=== PATIENT | female | born 1945 | race Caucasian/White ===

== ENCOUNTER 2016-06-24 18:37 | Inpatient (IN) | payer MEDICARE ==
[2016-06-24] MEDS ORDERED: MORPHINE SULFATE 4 MG/ML SYRINGE IV STA ×2 (18:47→19:31)
--- NOTE | 2016-06-24 19:09 | ED ---
General Adult HPI - General Source: patient, RN notes reviewed Mode of arrival: ambulatory Limitations: no limitations <Misty Vallejo - Last Filed: 06/24/16 19:39> <aFhad De La Cruz - Last Filed: 06/24/16 20:39> - General Chief complaint: Extremity Injury, Lower Stated complaint: Fall/Leg Pain Time Seen by Provider: 06/24/16 18:39 - History of Present Illness Initial comments: 70-year-old female presents to emergency Department chief complaint of fall. Patient was walking on on even sidewalk. Patient tripped and fell onto her right hip. Patient states on the right hip. Worse with movement. Patient denies any pain to the knee to the ankle. Patient states she did not hit her head she did not pass out there is no lightheadedness or dizziness before the fall. Patient denies any neck pain. Patient states that she continue to have the pain and she had a hard time getting up so the ambulance was called and she was brought here. Patient denies any recent fever, chills, shortness of breath, chest pain, back pain, abdominal pain, nausea vomiting, numbness or tingling, dysuria or hematuria, constipation or diarrhea, headaches or visual changes, or any other current symptoms. (Misty Vallejo) - Related Data Home Medications Medication Instructions Recorded Confirmed Cholesterol Unknown 1 tab PO DAILY 06/24/16 06/24/16 Lisinopril Unknown Dose 1 tab PO DAILY 06/24/16 06/24/16 Metformin Unknown Dose 1 tab PO DAILY 06/24/16 06/24/16 Allergies Allergy/AdvReac Type Severity Reaction Status Date / Time Penicillins Allergy Rash/Hives Verified 06/24/16 18:53 Review of Systems ROS Other: All systems not noted in ROS Statement are negative. <Misty Vallejo - Last Filed: 06/24/16 19:39> ROS Other: All systems not noted in ROS Statement are negative. <Fahad De La Cruz - Last Filed: 06/24/16 20:39> ROS Statement: Those systems with pertinent positive or pertinent negative responses have been documented in the HPI. Past Medical History Past Medical History: Diabetes Mellitus, Hyperlipidemia, Hypertension Additional Past Medical History / Comment(s): Type 2 diabetes oral meds only. History of Any Multi-Drug Resistant Organisms: None Reported Past Surgical History: Joint Replacement, Tonsillectomy Additional Past Surgical History / Comment(s): Left total hip replacement Past Psychological History: No Psychological Hx Reported Smoking Status: Never smoker Past Alcohol Use History: Occasional Past Drug Use History: None Reported <Misty Vallejo - Last Filed: 06/24/16 19:39> General Exam Limitations: no limitations <Misty Vallejo - Last Filed: 06/24/16 19:39> General appearance: alert, in no apparent distress Head exam: Present: atraumatic, normocephalic, normal inspection Eye exam: Present: normal appearance, PERRL, EOMI. Absent: scleral icterus, conjunctival injection, periorbital swelling ENT exam: Present: normal exam, mucous membranes moist Neck exam: Present: normal inspection. Absent: tenderness, meningismus, lymphadenopathy Respiratory exam: Present: normal lung sounds bilaterally. Absent: respiratory distress, wheezes, rales, rhonchi, stridor Cardiovascular Exam: Present: regular rate, normal rhythm, normal heart sounds. Absent: systolic murmur, diastolic murmur, rubs, gallop, clicks GI/Abdominal exam: Present: soft, normal bowel sounds. Absent: distended, tenderness, guarding, rebound, rigid Extremities exam: Present: normal inspection, full ROM, normal capillary refill , other (Right hip deformity). Absent: tenderness, pedal edema, joint swelling , calf tenderness Back exam: Present: normal inspection Neurological exam: Present: alert, oriented X3, CN II-XII intact Psychiatric exam: Present: normal affect, normal mood Skin exam: Present: warm, dry, intact, normal color. Absent: rash <Fahad De La Cruz - Last Filed: 06/24/16 20:39> - General Exam Comments Initial Comments: General: The patient is awake and alert, in no distress, and does not appear acutely ill. Neck: The neck is supple, there is no tenderness. Cardiovascular: There is a regular rate and rhythm. No murmur, rub or gallop is appreciated. Respiratory: Lungs are clear to auscultation, respirations are non-labored, breath sounds are equal. No wheezes, stridor, rales, or rhonchi. Musculoskeletal: sensation intact. 2 pulse pulses throughout right lower extremity. full range of motion of right ankle and knee. patient to palpation in groin of right hip no pain elsewhere. no deformity. negative pelvic rock Neurological: CN II-XII intact, There are no obvious motor or sensory deficits. Coordination appears grossly intact. Speech is normal. Skin: Skin is warm and dry and no rashes or lesions are noted. Psychiatric: Normal mood and affect. (Misty Vallejo) Course <Misty Vallejo - Last Filed: 06/24/16 19:39> <Fahad De La Cruz - Last Filed: 06/24/16 20:39> Vital Signs 06/24/16 18:49 Temperature 98.0 F Pulse Rate 82 Respiratory 18 Rate Blood Pressure 164/112 O2 Sat by Pulse 98 Oximetry - Reevaluation(s) Reevaluation #1: 06/24/16 20:39 Patient's pain is under control at this time (Fahad De La Cruz) Medical Decision Making - Radiology Data Radiology results: report reviewed, image reviewed <Misty Vallejo - Last Filed: 06/24/16 19:39> - Lab Data Result diagrams: 06/24/16 20:10 <Fahad De La Cruz - Last Filed: 06/24/16 20:39> - Medical Decision Making 70 yo female presents emergency Department with a chief complaint of right hip pain after fall. This patient's x-rays she had additional right hip fracture. At this time we did the initial pain control. [facility] regarding the [facility] and discussed admission. They are agreeable with the plan. We will consult on-call medicine for medical clearance. All questions have been answered. Patient will be admitted at this time. Patient to be placed nothing by mouth after midnight. Patient will have medicine consult for clearance. (Misty Vallejo) This 20 year sessile slip and fall, right hip fracture. Patient will be admitted for orthopedic evaluation and treatment (Fahad De La Cruz) - Lab Data Lab Results 06/24/16 Range/Units 20:10 WBC 16.9 H (3.8-10.6) k/uL RBC 4.21 (3.80-5.40) m/uL Hgb 12.8 (11.4-16.0) gm/dL Hct 37.9 (34.0-46.0) % MCV 90.1 (80.0-100.0) fL MCH 30.5 (25.0-35.0) pg MCHC 33.9 (31.0-37.0) g/dL RDW 12.6 (11.5-15.5) % Plt Count 228 (150-450) k/uL Neutrophils % 87 % Lymphocytes % 8 % Monocytes % 4 % Eosinophils % 1 % Basophils % 0 % Neutrophils # 14.6 H (1.3-7.7) k/uL Lymphocytes # 1.3 (1.0-4.8) k/uL Monocytes # 0.6 (0-1.0) k/uL Eosinophils # 0.1 (0-0.7) k/uL Basophils # 0.0 (0-0.2) k/uL Disposition Time of Disposition: 19:32 Decision Date: 06/24/16 Decision Time: 19:32 <Misty Vallejo - Last Filed: 06/24/16 19:39> <Fahad De La Cruz - Last Filed: 06/24/16 20:39> Clinical Impression: Closed right hip fracture Disposition: ADMITTED IP TO THIS [facility] Condition: Stable Referrals: None,Stated [Primary Care Provider] - 1-2 days Addendum entered and electronically signed by Misty Vallejo PAC 06/24/16 19:43: Labs will be followed up by the admitting physician.
[2016-06-24] MEDS ORDERED: ORPHENADRINE 30 MG/ML 2 ML VIAL IVP STA (19:31)
[2016-06-24] MEDS ORDERED: LORazepam 2 MG/ML SYRINGE IV PRN (19:32)
[2016-06-24] MEDS ORDERED: ONDANSETRON 4 MG/2 ML VIAL IVP PRN (19:32)
[2016-06-24] MEDS ORDERED: NALOXONE 0.4 MG/ML 1 ML VIAL IV PRN (19:32)
[2016-06-24] MEDS ORDERED: HYDROcodone/APAP 5-325MG 1 EACH TAB PO PRN (19:32)
--- NOTE | 2016-06-24 19:36 | XR ---
EXAMINATION TYPE: XR Hip RT and AP Pelvis DATE OF EXAM: 06/24/2016 7:31 PM COMPARISON: NONE HISTORY: Pelvic and right hip pain after fall injury. TECHNIQUE: A single AP view of the pelvis is obtained. Two views of the right hip are obtained. FINDINGS: Osseous structures are demineralized which is noted 2 lower radiographic sensitivity. Linea r lucency consistent with acute nondisplaced intertrochanteric fracture right proximal femur is ident ified. There is 10 mm ossific fragment involving the lesser trochanter noted. There is advanced degen erative change with marked joint space loss and spurring and subchondral cystic change in the acetabu lum and femoral head. No hip joint dislocation is seen. There is metallic hardware from left hip arthroplasty identified. Left groin vascular calcification i s seen. Sacroiliac joints are maintained. Punctate densities over the lower sacrum could reflect calc ified fibroids. No additional acute pelvic fracture or dislocation is seen. IMPRESSION: There is acute oblique nondisplaced intertrochanteric fracture of the right proximal fem ur. (Initial encounter close type posttraumatic fracture)
--- NOTE | 2016-06-24 19:37 | XR ---
EXAMINATION TYPE: XR chest 1V DATE OF EXAM: 06/24/2016 7:32 PM COMPARISON: NONE HISTORY: Presurgical study, right hip fracture. TECHNIQUE: Single frontal view of the chest is obtained. FINDINGS: There is no focal air space opacity, pleural effusion, or pneumothorax seen. Calcified lef t suprahilar nodule or granuloma is noted. The cardiac silhouette size is mildly enlarged. The oss eous structures are demineralized. IMPRESSION: Mild cardiomegaly without acute pulmonary process.
[2016-06-24] MEDS ORDERED: LISINOPRIL 20 MG TAB PO ONE (19:41)
[2016-06-24] MEDS: SODIUM CHLORIDE 0.9% 1,000 ML IV SCH (20:09)
[2016-06-24 20:30] LABS: Basophils % (A) 0 %; CH 30.7; CHCM 34.2; Eosinophils # (A) 0.1 k/uL (0-0.7); Eosinophils % (A) 1 %; HCT 37.9 % (34.0-46.0); HGB 12.8 gm/dL (11.4-16.0); Luc # (Auto) 0.14; Luc % (Auto) 1; Lymphocytes # (A) 1.3 k/uL (1.0-4.8); Lymphocytes % (A) 8 %; MCH 30.5 pg (25.0-35.0); MCHC 33.9 g/dL (31.0-37.0); MCV 90.1 fL (80.0-100.0); Mean Platelet Volume 7.1; Monocytes # (A) 0.6 k/uL (0-1.0); Monocytes % (A) 4 %; Neutrophils # (A) 14.6 k/uL (1.3-7.7); Neutrophils % (A) 87 %; RBC 4.21 m/uL (3.80-5.40); RDW 12.6 % (11.5-15.5); WBC 16.9 k/uL (3.8-10.6); WBC (Perox) 17.33
[2016-06-24 20:39] LABS: ALT 34 U/L (9-52); AST 31 U/L (14-36); Alkaline Phosphatase 94 U/L (38-126); Anion Gap 13 mmol/L; Blood Urea Nitrogen 14 mg/dL (7-17); Calcium 8.9 mg/dL (8.4-10.2); Carbon Dioxide 25 mmol/L (22-30); Chloride 96 mmol/L (98-107); Glucose 89 mg/dL (74-99); Non-African American GFR(MDRD) >60 (>60 ml/min/1.73 sqM); Potassium 4.4 mmol/L (3.5-5.1); Sodium 134 mmol/L (137-145); Total Bilirubin 0.7 mg/dL (0.2-1.3); Total Protein 7.2 g/dL (6.3-8.2)
[2016-06-24] MEDS: MORPHINE SULFATE 4 MG/ML SYRINGE IV PRN (21:33)
[2016-06-24] MEDS ORDERED: HYDROmorphone 1 MG/ML 1 ML SYRINGE IVP PRN (23:33)
[2016-06-25 00:08] VITALS: BMI 27.6
[2016-06-25] MEDS: ACETAMINOPHEN IV (For NPO) 1,000 MG in EMPTY BAG 1 BAG IVPB SCH ×4 (00:11→18:00)
[2016-06-25] MEDS: INSULIN LISPRO (humaLOG) 300 UNIT/3 ML VIAL SQ SCH ×5 (00:36→20:13)
[2016-06-25 01:15] LABS: Appearance,Urine Clear (Clear); Bilirubin,Urine Negative (Negative); Glucose,Urine (UA) Negative (Negative); Ketones,Urine 1+ (Negative); Leukocyte Esterase,Urine Negative (Negative); Nitrite,Urine Negative (Negative); PH, Urine 6.5 (5.0-8.0); Protein,Urine Negative (Negative); Specific Gravity,Urine 1.011 (1.001-1.035); UA Billing (MACRO vs. MICRO) CHEM; Urobilinogen,Urine <2.0 mg/dL (<2.0)
[2016-06-25] MEDS ORDERED: HYDROmorphone 1 MG/ML 1 ML SYRINGE IVP PRN ×4 (02:00→16:02)
[2016-06-25] MEDS: HYDROmorphone 1 MG/ML 1 ML SYRINGE IVP PRN ×3 (04:56→12:59)
[2016-06-25 06:53] LABS: Glucose,Whole Blood 112 mg/dL (75-99)
[2016-06-25] MEDS: SODIUM CHLORIDE 0.9% 1,000 ML IV SCH (07:02)
[2016-06-25] MEDS: LISINOPRIL 10 MG TAB PO SCH (07:34)
[2016-06-25 08:00] LABS: Basophils % (A) 0 %; CH 30.7; CHCM 34.2; Eosinophils % (A) 0 %; HCT 32.9 % (34.0-46.0); Luc # (Auto) 0.17; Luc % (Auto) 2; Lymphocytes # (A) 1.2 k/uL (1.0-4.8); Lymphocytes % (A) 12 %; MCH 30.1 pg (25.0-35.0); MCHC 33.5 g/dL (31.0-37.0); Mean Platelet Volume 8.2; Monocytes # (A) 0.5 k/uL (0-1.0); Monocytes % (A) 6 %; Neutrophils # (A) 7.8 k/uL (1.3-7.7); Neutrophils % (A) 80 %; RBC 3.66 m/uL (3.80-5.40); RDW 12.6 % (11.5-15.5); WBC 9.8 k/uL (3.8-10.6); WBC (Perox) 10.39
[2016-06-25 08:14] LABS: ALT 33 U/L (9-52); AST 23 U/L (14-36); Alkaline Phosphatase 70 U/L (38-126); Anion Gap 7 mmol/L; Blood Urea Nitrogen 10 mg/dL (7-17); Calcium 8.2 mg/dL (8.4-10.2); Carbon Dioxide 26 mmol/L (22-30); Chloride 97 mmol/L (98-107); Glucose 102 mg/dL (74-99); Non-African American GFR(MDRD) >60 (>60 ml/min/1.73 sqM); Potassium 4.2 mmol/L (3.5-5.1); Sodium 130 mmol/L (137-145); Total Bilirubin 1.6 mg/dL (0.2-1.3); Total Protein 5.9 g/dL (6.3-8.2)
--- NOTE | 2016-06-25 08:20 | P.HPOR ---
History of Present Illness H&P Date: 06/25/16 Chief Complaint: Right hip fracture This is a pleasant 70-year-old female admitted with right hip fracture. The patient tripped over uneven sidewalk yesterday and fell onto the right hip. She had immediate pain was unable to ambulate. She presented to [facility] emergency department where x-rays revealed intratrochanteric fracture. The patient was subsequently admitted to our service for surgical intervention and care. The patient was seen and evaluated at bedside this morning. She complains of right hip pain that is worse with any motion. She otherwise denies any other areas of pain. She denies any head trauma or loss of consciousness. She denies any fevers, chills, nausea, vomiting, shortness of breath, chest pain or abdominal pain. Review of Systems See HPI Past Medical History Past Medical History: Diabetes Mellitus, Hyperlipidemia, Hypertension Additional Past Medical History / Comment(s): Type 2 diabetes oral meds only. History of Any Multi-Drug Resistant Organisms: None Reported Past Surgical History: Joint Replacement, Tonsillectomy Additional Past Surgical History / Comment(s): Left total hip replacement Past Anesthesia/Blood Transfusion Reactions: No Reported Reaction Past Psychological History: No Psychological Hx Reported Smoking Status: Never smoker Past Alcohol Use History: Occasional Past Drug Use History: None Reported Medications and Allergies Home Medications Medication Instructions Recorded Confirmed Type Cholesterol Unknown 1 tab PO DAILY 06/24/16 06/24/16 History Lisinopril Unknown Dose 1 tab PO DAILY 06/24/16 06/24/16 History Metformin Unknown Dose 1 tab PO DAILY 06/24/16 06/24/16 History Allergies Allergy/AdvReac Type Severity Reaction Status Date / Time Penicillins Allergy Rash/Hives Verified 06/25/16 00:13 Physical Examination The patient does not appear in acute distress. She is alert and orientated 3. She is pleasant and answers questions appropriately. Head normocephalic atraumatic. Neck is supple. Breathing appears nonlabored. Abdomen is soft, nondistended and nontender. She moves her upper extremities freely without any difficulty or pain. Upon inspection of her lower extremities, right lower extremity is mildly shortened. She is pain to palpation over the right hip and worsening pain with any motion of the right lower extremity. She otherwise denies any other areas of pain of her long bones and joints. Calves are soft and nontender. She has good foot and ankle motion bilaterally. Dorsalis pedis pulse 2+ out of 4+. Results X-rays of the right hip reveal oblique nondisplaced and trochanteric fracture of the right proximal femur. There is advanced degenerative changes of the right hip as well. - Labs Labs: Abnormal Lab Results - Last 24 Hours (Table) 06/25/16 06/25/16 06/25/16 Range/Units 00:20 06:50 07:30 RBC 3.66 L (3.80-5.40) m/uL Hgb 11.0 L (11.4-16.0) gm/dL Hct 32.9 L (34.0-46.0) % Neutrophils # 7.8 H (1.3-7.7) k/uL POC Glucose (mg/dL) 112 H (75-99) mg/dL Urine Ketones 1+ H (Negative) H & H 06/25/16 Range/Units 07:30 Hgb 11.0 L (11.4-16.0) gm/dL Hct 32.9 L (34.0-46.0) % Result Diagrams: 06/25/16 07:30 06/24/16 20:10 Assessment and Plan (1) Intertrochanteric fracture of right femur Status: Acute Plan: The clinical and x-ray findings were discussed with the patient at bedside this morning. Nonoperative versus operative treatment was discussed. Surgical intervention with IT nail of the right hip was recommended. I discussed possible risks and complications including but not limited to bleeding, infection, DVT, myocardial infarction, stroke, , malunion and nonunion. The patient understands the risks and wished to proceed with the procedure. We' ll await medical clearance and plan for possible surgery this afternoon. The patient will remain nothing by mouth. Continue with pain control. Anticipate 3 -4 day hospital stay with likely subacute rehab upon discharge.
[2016-06-25 09:13] LABS: Hemoglobin A1C 5.6 % (4.2-6.1)
[2016-06-25 11:22] LABS: Glucose,Whole Blood 103 mg/dL (75-99)
[2016-06-25] MEDS ORDERED: hydrALAZINE HCL 20 MG/ML 1 ML VIAL IVP PRN (13:16)
[2016-06-25] MEDS ORDERED: IV FLUID CONTINUATION 1,000 ML IV ONE (13:23)
[2016-06-25] MEDS ORDERED: ceFAZolin 2 GM in SODIUM CHLORIDE 0.9% 100 ML IVPB ONE (13:45)
[2016-06-25] MEDS ORDERED: KETAMINE 10 MG/ML 20 ML VIAL ONE (14:28)
[2016-06-25] MEDS ORDERED: MIDAZOLAM 2 MG/2 ML VIAL ONE (14:28)
[2016-06-25] MEDS ORDERED: MORPHINE SULFATE (PF) 0.3 MG/0.3 ML SYR ONE (14:28)
[2016-06-25] MEDS ORDERED: PROPOFOL 10 MG/ML 20 ML VIAL IV ONE (14:28)
[2016-06-25] MEDS ORDERED: fentaNYL (PF) 50 MCG/ML 2 ML AMP ONE (14:28)
[2016-06-25] MEDS ORDERED: LIDOCAINE 1% INJ 10MG/ML (20 ML MDV) ONE (14:28)
[2016-06-25] MEDS ORDERED: CLINDAMYCIN 600 MG in SODIUM CHLORIDE 0.9% 1,000 ML IRRIGATION ONE (14:53)
[2016-06-25] MEDS ORDERED: LACTATED RINGERS 1,000 ML IV ONE (15:35)
--- NOTE | 2016-06-25 15:54 | P.OP ---
Date of Procedure: 06/25/16 Preoperative Diagnosis: Four-part intertrochanteric fracture of the right hip Postoperative Diagnosis: Four-part intertrochanteric fracture of the right hip Procedure(s) Performed: Closed reduction and intramedullary hip screw fixation of the right hip Implants: [employer] intertan nail 125, 10 mm x 18 cm. [employer] Intertan integrated interlocking lag screw, 95 mm lag screw, 90 mm compression screw. [employer] L-P screw, 5.0 mm x 27.5 mm. Anesthesia: spinal Surgeon: Sigifredo Griffin Can Carrier #1: Chana Madrigal Estimated Blood Loss (ml): 100 Pathology: none sent Condition: stable Disposition: PACU Indications for Procedure: This is a 70-year-old female who sustained an injury to her right hip when she fell while walking outside. He presented to the emergency room, and x-rays demonstrated a four-part intertrochanteric fracture of the right hip. There is also noted she had significant arthritis in her right hip. After discussing the surgical and nonsurgical treatment options with her at length, I have recommended a close reduction and intramedullary hip screw fixation of her right hip. I made her aware of the possible complications including, but not limited to, infection, bleeding, hardware failure, and the need for further surgery. Informed consent was obtained. Operative Findings: The operative findings are consistent with a four-part intertrochanteric fracture of the right hip. Description of Procedure: The patient was seen in the preoperative area, consent was reviewed, and the operative site was marked with a skin marker. The patient was brought to the operating room and placed on the operating room table. Anesthesia was administered by the anesthesia department. 2 g of Ancef were administered intravenously. The patient was placed supine on the fracture table with the fractured extremity in traction boot. His other extremity was placed in a well leg babb and his bony prominences were padded. A universal timeout was then performed which confirmed the patient's name, surgical site, ALLERGIES, and consent. Fracture reduction was performed with traction and adduction maneuver which was confirmed with fluoroscopy. After reduction was performed, his extremity was then prepped and draped in the usual sterile fashion. Utilizing fluoroscopy to identify the tip of the greater trochanter, a 3 cm incision was made just proximal to the greater trochanter. Utilizing a curved awl, the starting hole was created at the tip of the greater trochanter and centralized in the AP plane. These locations were confirmed by fluoroscopy. Guidewire was then inserted down the medullary canal. Sequentially reaming of the femur was performed to 11 mm distally and 17 mm proximally. After reaming, appropriate size nail was inserted over the guidewire. The nail was inserted to the appropriate depth and the guidewire was removed. The lag screw targeting device was placed in the jig and a small skin incision was made and the targeting guide was placed down to bone. Utilizing the distally threaded guidewire, the guidewire was placed in the appropriate position in the femoral head, both anterior, posterior and mediolateral. Next, the drill for the second screw was then placed through the guide and drilled to the appropriate depth. The guidewire was measured and the appropriate depth was then reamed. The final size screw was placed to the appropriate depth. Traction was released and the fracture site was compressed with the aid of the second screw. The proximal drill guide was then removed and the distal drill guide was then inserted in the jig. Skin incision was made down to bone and the distal drill guide was then placed. Distal hole was then drilled and measured to the appropriate depth. Distal screw was then placed. The entire jig was then removed and final fluoroscopic x-rays were obtained. The wounds were then irrigated copiously with saline solution. Fascia was closed with 0-Vicryl. Subcutaneous tissues were closed with 2-0 Vicryl and the skin was closed with víctor. Sterile dressings were applied. The patient was transported to the recovery room in stable condition. The language assistant ARELIS Tucker was required due the complexity of the surgery and the need for skilled surgical garment assembly supervisor.
[2016-06-25] MEDS ORDERED: HYDROcodone/APAP 5-325MG 1 EACH TAB PO PRN ×2 (16:02)
[2016-06-25] MEDS ORDERED: ONDANSETRON 4 MG/2 ML VIAL IVP PRN ×2 (16:02→16:31)
[2016-06-25] MEDS ORDERED: NALOXONE 0.4 MG/ML 1 ML VIAL IV PRN ×2 (16:02→16:31)
[2016-06-25] MEDS ORDERED: MAGNESIUM HYDROXIDE 2,400 MG/10 ML CUP PO PRN (16:02)
--- NOTE | 2016-06-25 16:10 | XR ---
Limited right hip HISTORY: Fracture 2 Intraoperative C-arm images document the procedure.
--- NOTE | 2016-06-25 16:10 | FL ---
Fluoroscopy HISTORY: Fracture, internal fixation 1.5 minutes fluoroscopy time supplied to the referring clinician. 2 intraoperative C-arm images docu ment the procedure. See dictated report from orthopedic surgery.
[2016-06-25] MEDS ORDERED: KETOROLAC 30 MG/ML 1 ML VIAL IVP PRN (16:31)
[2016-06-25] MEDS ORDERED: diphenhydrAMINE 50 MG/ML 1 ML VIAL IVP PRN (16:31)
[2016-06-25] MEDS ORDERED: NALBUPHINE 10 MG/ML AMPUL IV PRN (16:31)
[2016-06-25] MEDS ORDERED: MORPHINE SULFATE 4 MG/ML SYRINGE IVP PRN (16:31)
[2016-06-25 16:45] LABS: Glucose,Whole Blood 104 mg/dL (75-99)
[2016-06-25] MEDS ORDERED: WARFARIN 5 MG TAB PO ONE (18:00)
[2016-06-25 20:10] LABS: Glucose,Whole Blood 236 mg/dL (75-99)
[2016-06-25] MEDS: SENNOSIDES-DOCUSATE SODIUM 1 EACH TAB PO SCH (20:13)
[2016-06-25] MEDS: MORPHINE SULFATE 4 MG/ML SYRINGE IVP PRN (21:21)
[2016-06-26] MEDS: ceFAZolin 2 GM in SODIUM CHLORIDE 0.9% 100 ML IVPB SCH ×2 (00:38→08:07)
[2016-06-26] MEDS: MORPHINE SULFATE 4 MG/ML SYRINGE IVP PRN (01:29)
[2016-06-26] MEDS: SODIUM CHLORIDE 0.9% 1,000 ML IV SCH ×2 (01:58→22:11)
[2016-06-26] MEDS: ACETAMINOPHEN TAB 325 MG TAB PO PRN ×2 (04:23→08:08)
[2016-06-26] MEDS: MORPHINE SULFATE 4 MG/ML SYRINGE IV PRN (06:34)
[2016-06-26 06:57] LABS: Glucose,Whole Blood 124 mg/dL (75-99)
[2016-06-26 07:06] LABS: Basophils % (A) 0 %; CH 30.5; CHCM 33.9; Eosinophils # (A) 0.2 k/uL (0-0.7); Eosinophils % (A) 2 %; HCT 26.6 % (34.0-46.0); HDW 2.46; Luc # (Auto) 0.11; Luc % (Auto) 1; Lymphocytes # (A) 1.1 k/uL (1.0-4.8); Lymphocytes % (A) 11 %; MCH 30.5 pg (25.0-35.0); MCHC 33.8 g/dL (31.0-37.0); MCV 90.3 fL (80.0-100.0); Mean Platelet Volume 7.7; Monocytes # (A) 0.5 k/uL (0-1.0); Monocytes % (A) 5 %; Neutrophils # (A) 7.6 k/uL (1.3-7.7); Neutrophils % (A) 81 %; RBC 2.95 m/uL (3.80-5.40); RDW 12.5 % (11.5-15.5); WBC 9.4 k/uL (3.8-10.6)
[2016-06-26 07:09] LABS: INR 1.1 (<1.1); Prothrombin Time 11.2 sec (9.0-12.0)
[2016-06-26 07:20] LABS: ALT 31 U/L (9-52); AST 28 U/L (14-36); Alkaline Phosphatase 54 U/L (38-126); Anion Gap 7 mmol/L; Blood Urea Nitrogen 6 mg/dL (7-17); Calcium 7.8 mg/dL (8.4-10.2); Carbon Dioxide 22 mmol/L (22-30); Chloride 94 mmol/L (98-107); Glucose 121 mg/dL (74-99); Non-African American GFR(MDRD) >60 (>60 ml/min/1.73 sqM); Potassium 4.1 mmol/L (3.5-5.1); Sodium 123 mmol/L (137-145); Total Bilirubin 1.8 mg/dL (0.2-1.3); Total Protein 5.3 g/dL (6.3-8.2)
[2016-06-26] MEDS: INSULIN LISPRO (humaLOG) 300 UNIT/3 ML VIAL SQ SCH ×4 (07:39→20:49)
[2016-06-26] MEDS: LISINOPRIL 10 MG TAB PO SCH (08:07)
--- NOTE | 2016-06-26 08:10 | CONS ---
DATE OF CONSULTATION: REASON FOR CONSULTATION: Advice regarding hypertension, diabetes mellitus, and multiple medical issues requested by Orthopedic Surgery. HISTORY OF PRESENT ILLNESS: This 70-year-old woman with a past medical history of diabetes, hypertension, hyperlipidemia, who is recently moved to the area was admitted to [facility] with complaints of fall and right hip pain. The patient apparently walking on the side walk, tripped and fell onto the right hip. The pain was movement on movement. The hip x-ray showed acute oblique nondisplaced fracture of the right proximal fever and the patient was evaluated and admitted for further evaluation and treatment per Orthopedic Surgery. There is no history of fever, rigors. No history of headache, loss of consciousness, seizures. WBC 19.3 on admission. Currently this improved to 9.8, hemoglobin 11, sodium is 130. PAST MEDICAL HISTORY: History of diabetes, hypertension, hyperlipidemia, history of depression, DJD. Medications prior to admission include: 1. Metformin daily. 2. Lisinopril 1 daily. 3. Cholesterol pill 1 pill p.o. daily. ALLERGIES: PENICILLIN. FAMILY HISTORY: Strokes in the family. SOCIAL HISTORY: No history of smoking, occasional alcohol. REVIEW OF SYSTEMS: ENT: No diminished hearing. No diminished vision. CARDIOVASCULAR: No angina. RESPIRATORY: No cough. GI: No nausea. : No dysuria. NERVOUS SYSTEM: No numbness, weakness. ALLERGY/IMMUNOLOGY: No asthma or hayfever. MUSCULOSKELETAL: As mentioned earlier. ENDOCRINE: As mentioned earlier. CONSTITUTIONAL: As mentioned earlier. DERMATOLOGY: Negative. RHEUMATOLOGY: Negative. PSYCHIATRY: As mentioned earlier. PHYSICAL EXAMINATION: Patient is alert and oriented x3. Pulse 74, blood pressure 140/79, respirations 16, temperature 97.6,pulse ox 94% on room air. HEENT: Conjunctivae normal. Oral mucosa moist. NECK: No jugular venous distention. No carotid bruit. No lymph node enlargement. CARDIOVASCULAR: S1 and S2, muffled. No S3, no S4. RESPIRATORY: Breath sounds diminished at the bases. No rhonchi, no crackles. ABDOMEN: Soft, nontender. No mass palpable. No splenomegaly. LEGS: Status post right hip fracture. NERVOUS SYSTEM: Higher function as mentioned. Moves all four limbs. No focal motor deficits. LYMPHATIC: No lymphadenopathy in the neck, axillae or groin. SKIN: No ulcer, rash or bleeding. LABS: At this time show WBC 9.8, hemoglobin is 11. Sodium is 130, potassium 4.2. Glucose 102, total bilirubin is 1.6. Albumin is 3.4. ASSESSMENT: 1. Status post right hip total fracture. 2. Hyponatremia. 3. Anemia, normocytic. 4. Increased bilirubin. 5. Diabetes mellitus type 2. 6. Hypertension. 7. Hyperlipidemia. 8. Degenerative joint disease. 9. FULL CODE. RECOMMENDATIONS AND DISCUSSION: In this 70-year-old woman who presented with multiple complex medical issues, will monitor the patient closely. Continue the current medications. Continue symptomatic treatment. Would recommend monitor blood sugars. DVT prophylaxis. Incentive spirometry. Resume the home medications. Will follow the patient closely. I also recommend EKG the chest x-ray is reported as no acute pulmonary process. If EKG is normal, patient will be cleared for surgery. The patient may be asked for the primary physician in the outpatient setting . Thank you for letting us participate in the care of this patient.
--- NOTE | 2016-06-26 09:59 | P.PN ---
Subjective Principal diagnosis: Right hip fracture This is a pleasant 70-year-old female who is status post right total hip arthroplasty. Today's postoperative day #1. Patient is seen and evaluated at bedside with Dr. Sigifredo Griffin. She complains of right hip pain. She's not yet been up with therapy. She has no other complaints at this time. Objective - Vital Signs Vital signs: Vital Signs Temp 98.5 F 06/26/16 08:43 Pulse 95 06/26/16 08:00 Resp 16 06/26/16 08:00 BP 141/71 06/26/16 07:47 Pulse Ox 93 L 06/26/16 07:47 Intake & Output 06/25/16 06/26/16 06/26/16 18:59 06:59 18:59 Intake Total 2101 800 700 Output Total 650 650 100 Balance 1451 150 600 Weight 70.76 kg 70.76 kg Intake: IV 926 800 ceFAZolin 2 gm In Sodium 800 Chloride 0.9% 100 ml @ 100 mls/hr IVPB ONCE ONE Rx#:[id number] Intake, IV Titration 475 Amount ACETAMINOPHEN IV (For NPO 100 ) 1,000 mg In Empty Bag 1 bag @ 400 mls/hr IVPB Q6HR [facility] Rx#:[id number] Sodium Chloride 0.9% 1, 375 000 ml @ 60 mls/hr IV . [id number] [facility] Rx#:[id number] Oral 700 700 Output: Urine 550 650 100 Uretheral ([place]) 450 650 Estimated Blood Loss 100 Other: Voiding Method Indwelling Catheter Indwelling Catheter Indwelling Catheter - Exam The patient does not appear in acute distress. Alert and orientated 3. Dressing is clean dry and intact. Calf is soft and nontender. Good foot and ankle motion without difficulty. Sensation and circulatory status is intact. - Labs CBC & Chem 7: 06/26/16 06:50 06/26/16 06:50 Labs: Abnormal Lab Results - Last 24 Hours (Table) 06/25/16 06/25/16 06/25/16 Range/Units 11:20 16:42 20:09 RBC (3.80-5.40) m/uL Hgb (11.4-16.0) gm/dL Hct (34.0-46.0) % Plt Count (150-450) k/uL Sodium (137-145) mmol/L Chloride (98-107) mmol/L BUN (7-17) mg/dL Glucose (74-99) mg/dL POC Glucose (mg/dL) 103 H 104 H 236 H (75-99) mg/dL Calcium (8.4-10.2) mg/dL Total Bilirubin (0.2-1.3) mg/dL Total Protein (6.3-8.2) g/dL Albumin (3.5-5.0) g/dL 06/26/16 06/26/16 06/26/16 Range/Units 06:50 06:50 06:55 RBC 2.95 L (3.80-5.40) m/uL Hgb 9.0 L D (11.4-16.0) gm/dL Hct 26.6 L (34.0-46.0) % Plt Count 145 L (150-450) k/uL Sodium 123 L (137-145) mmol/L Chloride 94 L (98-107) mmol/L BUN 6 L (7-17) mg/dL Glucose 121 H (74-99) mg/dL POC Glucose (mg/dL) 124 H (75-99) mg/dL Calcium 7.8 L (8.4-10.2) mg/dL Total Bilirubin 1.8 H (0.2-1.3) mg/dL Total Protein 5.3 L (6.3-8.2) g/dL Albumin 2.9 L (3.5-5.0) g/dL Assessment and Plan (1) Intertrochanteric fracture of right femur Status: Acute Plan: Continue with routine postoperative care. Toe-touch weightbearing right lower extremity. Anticoagulation with Coumadin. Pain control. Anticipate possible transfer to rehab on .
[2016-06-26 11:18] LABS: Glucose,Whole Blood 187 mg/dL (75-99)
--- NOTE | 2016-06-26 12:29 | P.PN ---
Progress Note - Text 0637 Anesthesia POD 1. Patient is status post O's production right hip with IT nail under spinal anesthesia with intra-thecal preservative free morphine 300 g. Minimal pruritus, less than adequate post-op analgesia requiring morphine supplementation, and no headache or other complications.
[2016-06-26] MEDS ORDERED: HYDROcodone/APAP 7.5-325MG 1 EACH TAB PO PRN (14:38)
[2016-06-26] MEDS: HYDROcodone/APAP 7.5-325MG 1 EACH TAB PO PRN (16:42)
[2016-06-26 16:53] LABS: Glucose,Whole Blood 181 mg/dL (75-99)
[2016-06-26] MEDS ORDERED: WARFARIN 7.5 MG TAB PO ONE (18:00)
--- NOTE | 2016-06-26 20:20 | PN ---
DATE OF SERVICE: 07/04/2016 This 70-year-old woman who was admitted after right hip fracture, underwent closed reduction and internal fixation of the right hip. No chest pain or palpitation. No fever. REVIEW OF SYSTEMS: CARDIOVASCULAR: No angina or palpitations. RESPIRATORY: As mentioned earlier. GASTROINTESTINAL: As mentioned earlier. GENITOURINARY: No dysuria. Nervous system: No numbness or weakness. On exam, alert and oriented times three. Pulse 85, blood pressure 148/66, respiratory rate 16, temperature 98.3, pulse ox 99% on 2 liters. HEENT: Conjunctivae normal. NECK: No jugular venous distention. CARDIOVASCULAR: S1, S2 muffled. RESPIRATORY: Breath sounds diminished in the bases. A few scattered rhonchi, no crackles. ABDOMEN: Soft, nontender. LEGS: Status post right hip surgery. Nervous system: Higher functions as mentioned earlier. Moves all four limbs. No focal deficits. LYMPHATICS: No lymph nodes palpable in the neck, axillae or groin. SKIN: No ulcer, rash or bleeding. LABS: WBC is 9.5, hemoglobin is 9, platelets 145. Sodium is 123, glucose 124. Total bilirubin is 1.8. Calcium is 7.8. Albumin is 2.9. The patient had multiple abnormal labs. Current medications are reviewed and include: 1. Tylenol [address] 7.5 q.6 p.r.n. 3. Catapres 0.1 q4. 4. Benadryl. 5. Apresoline 10 mg q.4. 6. Dilaudid 0.5 q.3 p.r.n. 7. Humalog. 8. Zestril. 9. Ativan. 10. Morphine. 11. Narcan. 12. Senokot-S. 13. Coumadin. ASSESSMENT: 1. Right hip fracture, status post closed reduction intramedullary hip screw fixation of the right hip. 2. Hypernatremia. 3. Anemia, normocytic. 4. Increased bilirubin. 5. Diabetes mellitus type 2. 6. Hypertension. 7. Anemia, possibly dilutional. 8. Thrombocytopenia. 9. Hyponatremia. 10. Increased random blood sugar. 11. Hypoalbuminemia with mild to moderate protein calorie malnutrition. 12. Severe right hip pain and as well as gait dysfunction. 13. Hyperlipidemia. 14. History of degenerative joint disease. 15. FULL CODE. RECOMMENDATIONS AND DISCUSSION: Recommend to continue current medications, continue with monitoring, symptomatic treatment. Otherwise, I would also recommended repeat labs and continue to monitor. I would recommend to continue the previous medications. DVT prophylaxis. Monitor the sodium. PT, OT evaluation. Possible ECF rehab. Further recommendations to follow. See orders for further details. Discussed with the patient, understands and agrees.
[2016-06-26 20:45] LABS: Glucose,Whole Blood 149 mg/dL (75-99)
[2016-06-26] MEDS: SENNOSIDES-DOCUSATE SODIUM 1 EACH TAB PO SCH (20:48)
[2016-06-26] MEDS: cloNIDine HCL 0.1 MG TAB PO PRN (20:49)
[2016-06-27] MEDS: HYDROcodone/APAP 7.5-325MG 1 EACH TAB PO PRN ×2 (02:19→14:41)
[2016-06-27 06:54] LABS: Basophils % (A) 0 %; CH 30.8; CHCM 34.8; Eosinophils # (A) 0.1 k/uL (0-0.7); Eosinophils % (A) 1 %; HCT 24.5 % (34.0-46.0); HDW 2.46; HGB 8.3 gm/dL (11.4-16.0); Luc % (Auto) 1; Lymphocytes # (A) 0.6 k/uL (1.0-4.8); Lymphocytes % (A) 8 %; MCH 30.1 pg (25.0-35.0); MCHC 33.9 g/dL (31.0-37.0); MCV 88.8 fL (80.0-100.0); Mean Platelet Volume 7.1; Monocytes # (A) 0.3 k/uL (0-1.0); Monocytes % (A) 4 %; Neutrophils # (A) 6.6 k/uL (1.3-7.7); Neutrophils % (A) 86 %; RBC 2.76 m/uL (3.80-5.40); RDW 12.7 % (11.5-15.5); WBC 7.7 k/uL (3.8-10.6); WBC (Perox) 7.89
[2016-06-27 06:59] LABS: INR 1.5 (<1.1); Prothrombin Time 14.6 sec (9.0-12.0)
[2016-06-27 07:05] LABS: Anion Gap 7 mmol/L; Blood Urea Nitrogen 4 mg/dL (7-17); Carbon Dioxide 25 mmol/L (22-30); Chloride 91 mmol/L (98-107); Glucose 132 mg/dL (74-99); Non-African American GFR(MDRD) >60 (>60 ml/min/1.73 sqM); Potassium 3.9 mmol/L (3.5-5.1); Sodium 123 mmol/L (137-145)
[2016-06-27 07:19] LABS: Glucose,Whole Blood 137 mg/dL (75-99)
[2016-06-27] MEDS: LISINOPRIL 10 MG TAB PO SCH (08:04)
[2016-06-27] MEDS: INSULIN LISPRO (humaLOG) 300 UNIT/3 ML VIAL SQ SCH ×4 (08:04→21:16)
--- NOTE | 2016-06-27 08:22 | P.PN ---
Subjective Principal diagnosis: Right hip fracture This is a pleasant 70-year-old female who is status post right total hip arthroplasty. Today's postoperative day #2. Patient is seen and evaluated at bedside with Dr. Sigifredo Griffin. She complains of right hip pain. She's up in a bedside chair. She has no other complaints at this time. Objective - Vital Signs Vital signs: Vital Signs Temp 98.7 F 06/27/16 07:44 Pulse 85 06/27/16 07:44 Resp 17 06/27/16 07:44 BP 138/72 06/27/16 07:44 Pulse Ox 95 06/27/16 07:44 Intake & Output 06/26/16 06/27/16 06/27/16 18:59 06:59 18:59 Intake Total 1520 100 Output Total 1100 Balance 420 100 Weight 70.76 kg Intake: Oral 1520 100 Output: Urine 1100 Uretheral ([place]) 400 Other: Voiding Method Indwelling Catheter Toilet # Voids 1 1 1 - Exam The patient does not appear in acute distress. Alert and orientated 3. Dressing is clean dry and intact. Calf is soft and nontender. Good foot and ankle motion without difficulty. Sensation and circulatory status is intact. - Labs CBC & Chem 7: 06/27/16 06:24 06/27/16 06:24 Labs: Abnormal Lab Results - Last 24 Hours (Table) 06/26/16 06/26/16 06/26/16 Range/Units 11:16 16:48 20:32 RBC (3.80-5.40) m/uL Hgb (11.4-16.0) gm/dL Hct (34.0-46.0) % Plt Count (150-450) k/uL Lymphocytes # (1.0-4.8) k/uL PT (9.0-12.0) sec Sodium (137-145) mmol/L Chloride (98-107) mmol/L BUN (7-17) mg/dL Glucose (74-99) mg/dL POC Glucose (mg/dL) 187 H 181 H 149 H (75-99) mg/dL Calcium (8.4-10.2) mg/dL 06/27/16 06/27/16 06/27/16 Range/Units 06:24 06:24 06:24 RBC 2.76 L (3.80-5.40) m/uL Hgb 8.3 L (11.4-16.0) gm/dL Hct 24.5 L (34.0-46.0) % Plt Count 141 L (150-450) k/uL Lymphocytes # 0.6 L (1.0-4.8) k/uL PT 14.6 H (9.0-12.0) sec Sodium 123 L (137-145) mmol/L Chloride 91 L (98-107) mmol/L BUN 4 L (7-17) mg/dL Glucose 132 H (74-99) mg/dL POC Glucose (mg/dL) (75-99) mg/dL Calcium 8.0 L (8.4-10.2) mg/dL 06/27/16 Range/Units 06:59 RBC (3.80-5.40) m/uL Hgb (11.4-16.0) gm/dL Hct (34.0-46.0) % Plt Count (150-450) k/uL Lymphocytes # (1.0-4.8) k/uL PT (9.0-12.0) sec Sodium (137-145) mmol/L Chloride (98-107) mmol/L BUN (7-17) mg/dL Glucose (74-99) mg/dL POC Glucose (mg/dL) 137 H (75-99) mg/dL Calcium (8.4-10.2) mg/dL Assessment and Plan (1) Intertrochanteric fracture of right femur Status: Acute Plan: Continue with routine postoperative care. Toe-touch weightbearing right lower extremity. Anticoagulation with Coumadin. Pain control. Anticipate possible transfer to rehab on .
[2016-06-27 11:38] LABS: Glucose,Whole Blood 140 mg/dL (75-99)
[2016-06-27] MEDS ORDERED: FERROUS SULFATE 325 MG TAB PO STA (14:37)
[2016-06-27] MEDS: SODIUM CHLORIDE 0.9% 1,000 ML IV SCH (14:38)
[2016-06-27 16:09] LABS: Basophils # (A) 0.1 k/uL (0-0.2); Basophils % (A) 1 %; CHCM 34.7; Eosinophils # (A) 0.1 k/uL (0-0.7); Eosinophils % (A) 1 %; HDW 2.52; HGB 8.4 gm/dL (11.4-16.0); Luc # (Auto) 0.15; Luc % (Auto) 2; Lymphocytes # (A) 0.6 k/uL (1.0-4.8); Lymphocytes % (A) 8 %; MCH 30.1 pg (25.0-35.0); MCHC 33.6 g/dL (31.0-37.0); MCV 89.6 fL (80.0-100.0); Monocytes # (A) 0.4 k/uL (0-1.0); Monocytes % (A) 5 %; Neutrophils % (A) 82 %; RBC 2.79 m/uL (3.80-5.40); RDW 12.7 % (11.5-15.5); WBC 7.3 k/uL (3.8-10.6); WBC (Perox) 7.38
[2016-06-27 16:24] LABS: Glucose,Whole Blood 128 mg/dL (75-99)
[2016-06-27] MEDS ORDERED: WARFARIN 7.5 MG TAB PO ONE (18:00)
[2016-06-27 19:55] LABS: Glucose,Whole Blood 141 mg/dL (75-99)
--- NOTE | 2016-06-27 20:32 | PN ---
DATE OF SERVICE: 06/27/2016 This 70-year-old woman who was admitted after closed reduction intramedullary hip screw fixation of the right hip is being closely monitored. ECF rehab is at this time. No chest pain. No palpitation. No fever. On exam, alert and oriented x3. Pulse is 95, blood pressure 136/74, respiration 17, temperature 97.9, pulse ox 92% on 2 L. HEENT: Conjunctivae normal. Oral mucosa moist. NECK: No jugular venous distention. No carotid bruit. No lymph node enlargement. CARDIOVASCULAR SYSTEM: S1, S2 muffled. No S3. No S4. RESPIRATORY SYSTEM: Breath sounds diminished at the bases. No rhonchi. No crackles. ABDOMEN: Soft. LEGS: Status post surgery. NERVOUS SYSTEM: No focal deficit. LABS: WBC 7.6, hemoglobin 8.3. INR is 1.5. Sodium is 123. Glucose 132. ASSESSMENT: 1. Right hip fracture, status post closed reduction intramedullary hip screw fixation of the right hip. 2. Hypernatremia. 3. Anemia, normocytic. 4. Increased bilirubin. 5. Diabetes mellitus, type 2. 6. Hypertension. 7. Anemia, possibly dilutional. 8. Thrombocytopenia. 9. Hyponatremia. 10. Increased random blood sugar. 11. Hypoalbuminemia with mild to moderate protein-calorie malnutrition. 12. Severe right hip pain as well as gait dysfunction. 13. Hyperlipidemia. 14. History of degenerative joint disease. 15. FULL CODE. RECOMMENDATIONS AND DISCUSSION: I recommend to continue with the current medications, continue with symptomatic treatment. I would recommend repeat labs in the morning. Otherwise, closely follow with Orthopedic Surgery. Increase ambulation. Possible ECF rehab. Further recommendations to follow. Repeat labs. Iron supplementation. MTDD
[2016-06-27 21:07] VITALS: RESP 16
[2016-06-27] MEDS: cloNIDine HCL 0.1 MG TAB PO PRN (21:16)
[2016-06-27] MEDS: SENNOSIDES-DOCUSATE SODIUM 1 EACH TAB PO SCH (21:16)
[2016-06-28] MEDS: HYDROcodone/APAP 7.5-325MG 1 EACH TAB PO PRN ×3 (02:18→12:50)
[2016-06-28] MEDS: LISINOPRIL 10 MG TAB PO SCH (07:30)
[2016-06-28] MEDS: cloNIDine HCL 0.1 MG TAB PO PRN (07:31)
[2016-06-28] MEDS: INSULIN LISPRO (humaLOG) 300 UNIT/3 ML VIAL SQ SCH ×2 (07:34→12:43)
[2016-06-28] MEDS: SODIUM CHLORIDE 0.9% 1,000 ML IV SCH (07:40)
[2016-06-28 07:43] LABS: Glucose,Whole Blood 95 mg/dL (75-99)
[2016-06-28 07:45] VITALS: BP 156/69; PULSE 76; TEMP 98
[2016-06-28 07:46] LABS: INR 2.7 (<1.1); Prothrombin Time 25.7 sec (9.0-12.0)
--- NOTE | 2016-06-28 09:14 | P.DS ---
Providers Date of admission: 06/24/16 20:40 Expected date of discharge: 06/28/16 Attending physician: Sigifredo Griffin Primary care physician: Stated None - Discharge Diagnosis(es) (1) Closed right hip fracture Current Visit: Yes Status: Acute (2) Intertrochanteric fracture of right femur Current Visit: Yes Status: Acute Hospital Course: This is a 70-year-old female who is admitted to [facility] on 06/24/2016 after falling and sustaining injury to the right hip. On exam and x- ray in the emergency department he is found to have an intertrochanteric fracture of the right hip. He is admitted to our service for surgical intervention and care. Patient is taken to surgery for close reduction and insertion of intertrochanteric nail of the right hip. The procedure was performed without complication or sequelae. The patient is doing fairly well postoperatively. She had a fall in the evening on 06/27/2016. No new findings on exam today. Vital signs and labs are stable on postoperative day #3. Patient is discharged to inpatient rehab in good condition. Please see med rec for accurate list of discharge medications. Patient Condition at Discharge: Stable Plan - Discharge Summary New Discharge Prescriptions: HYDROcodone/APAP 7.5-325MG [Evans 7.5] 1 - 2 each PO Q6HR PRN #90 tab PRN Reason: Pain Sennosides-Docusate Sodium [Senokot-S] 2 tab PO DAILY #60 tablet Warfarin [Coumadin] 2.5 mg PO DAILY #27 tab Discharge Medication List Atorvastatin Calcium [Lipitor] 40 mg PO DAILY 06/25/16 [History] Lisinopril [Zestril] 20 mg PO DAILY 06/25/16 [History] glyBURIDE [Diabeta] 5 mg PO DAILY 06/25/16 [History] HYDROcodone/APAP 7.5-325MG [Evans 7.5] 1 - 2 each PO Q6HR PRN #90 tab 06/27/16 [ Rx] Sennosides-Docusate Sodium [Senokot-S] 2 tab PO DAILY #60 tablet 06/27/16 [Rx] Warfarin [Coumadin] 2.5 mg PO DAILY #27 tab 06/27/16 [Rx] Follow up Appointment(s)/Referral(s): None,Stated [Primary Care Provider] - 1-2 days Sigifredo Griffin DO [Doctor of Osteopathic Medicine] - 2 Weeks Ambulatory/Diagnostic Orders: Prothrombin Time INR [LAB.AMB] Time Frame: 4 Weeks, Location: Determined By Patient Activity/Diet/Wound Care/Special Instructions: Toe touch weightbearing Daily dressing changes Keep incision clean and dry Call [facility] with questions or concerns [phone] Discharge Disposition: TRANSFER TO SNF/ECF
[2016-06-28 12:10] LABS: Glucose,Whole Blood 122 mg/dL (75-99)
[2016-06-28] MEDS ORDERED: FERROUS SULFATE 325 MG TAB PO SCH (12:30)
--- NOTE | 2016-06-28 20:48 | PN ---
DATE OF SERVICE: 06/28/2016 This 70-year-old woman who was admitted with right hip fracture is being closely monitored. The patient is slated to go rehab. No chest pain. No palpitation. No fever. On exam, alert and oriented x3. Pulse 76, blood pressure 156/89, respiration 16, temperature 98 degrees, pulse ox 98% on room air. HEENT: Conjunctivae normal. NECK: No jugular venous distention. CARDIOVASCULAR SYSTEM: S1, S2 muffled. RESPIRATORY SYSTEM: Breath sounds diminished at the bases. No rhonchi. No crackles. ABDOMEN: Soft, non-tender. LEGS: Status post surgery. NERVOUS SYSTEM: No focal deficit. LABS: Glucose noted. Hemoglobin is 8.3. Sodium 123. ASSESSMENT: 1. Right hip fracture, status post closed reduction, intramedullary hip screw fixation of the right hip. 2. Hyponatremia. 3. Anemia, normocytic. 4. Increased bilirubin. 5. Diabetes mellitus, type 2. 6. Hypertension. 7. History of anemia, possibly dilutional. 8. Thrombocytopenia. 9. Increased random blood sugar. 10. Hypoalbuminemia with mild to moderate protein-calorie malnutrition. 11. Severe right hip pain as well as gait dysfunction. 12. Hyperlipidemia. 13. History of degenerative joint disease. 14. FULL CODE. RECOMMENDATIONS AND DISCUSSION: I recommend to continue with the current medications, continue with the monitoring, symptomatic treatment. Otherwise, at this time closely follow with Orthopedic Surgery. Otherwise, possible ECF rehab with Dr. Stanford. Refer to the discharge recommendations for list of medications.
== END 2016-06-28 13:15 | DRG 481 ==
LOC: EC 18:37 → 3SUR 20:40
PROVIDERS: ADMIT Orthopaedic Surgery; ATTEND Orthopaedic Surgery
PROC: 0QS636Z Reposition Right Upper Femur with Intramedullary Internal Fixation Device, Percutaneous Approach (ICD-10-PCS; principal; 2016-06-25 14:29)
DX: S72.141A Displaced intertrochanteric fracture of right femur, initial encounter for closed fracture (principal); E44.0 Moderate protein-calorie malnutrition; D69.6 Thrombocytopenia, unspecified; E87.1 Hypo-osmolality and hyponatremia; D64.9 Anemia, unspecified; E11.9 Type 2 diabetes mellitus without complications; E78.5 Hyperlipidemia, unspecified; I10 Essential (primary) hypertension; W01.0XXA Fall on same level from slipping, tripping and stumbling without subsequent striking against object, initial encounter; Y93.01 Activity, walking, marching and hiking; M16.11 Unilateral primary osteoarthritis, right hip; Z82.3 Family history of stroke
CPT/HCPCS: 36415; 71010; 73502; 80048; 80053; 81003; 83036; 85025; 85610; 96374; 96375; 96376; 99284

== ENCOUNTER → 2019-11-02 | Outpatient (CLI) | payer MEDICARE ==
[2019-11-02 14:03] LABS: HCT 33.9 % (34.0-46.0); HGB 11.2 gm/dL (11.4-16.0); MCH 30.1 pg (25.0-35.0); MCV 91.2 fL (80.0-100.0); Mean Platelet Volume 7.8; Platelet Count 278 k/uL (150-450); RBC 3.71 m/uL (3.80-5.40); RDW 13.5 % (11.5-15.5); WBC 10.1 k/uL (3.8-10.6)
[2019-11-02 14:06] LABS: INR 0.9 (<1.2); Partial Thromboplastin Time 25.2 sec (22.0-30.0); Prothrombin Time 9.7 sec (9.0-12.0)
[2019-11-02 14:20] LABS: Appearance,Urine Clear (Clear); Bilirubin,Urine Negative (Negative); Blood,Urine Negative (Negative); Color,Urine Light Yellow; Glucose,Urine (UA) Negative (Negative); Ketones,Urine Negative (Negative); Leukocyte Esterase,Urine Negative (Negative); Nitrite,Urine Negative (Negative); PH, Urine 5.5 (5.0-8.0); Protein,Urine Negative (Negative); Specific Gravity,Urine 1.012 (1.001-1.035); Urobilinogen,Urine <2.0 mg/dL (<2.0)
[2019-11-02 14:25] LABS: ALT 18 U/L (4-34); AST 25 U/L (14-36); African American GFR (CKD) >90 (>60 ml/min/1.73 sqM); Albumin 4.2 g/dL (3.5-5.0); Alkaline Phosphatase 86 U/L (38-126); Anion Gap 8 mmol/L; Blood Urea Nitrogen 16 mg/dL (7-17); Calcium 9.2 mg/dL (8.4-10.2); Carbon Dioxide 29 mmol/L (22-30); Chloride 95 mmol/L (98-107); Glucose 143 mg/dL (74-99); Non-African American GFR(CKD) 84 (>60 ml/min/1.73 sqM); Potassium 4.2 mmol/L (3.5-5.1); Sodium 132 mmol/L (137-145); Total Bilirubin 0.7 mg/dL (0.2-1.3); Total Protein 6.7 g/dL (6.3-8.2)
== END | disposition home or self-care (01) ==
LOC: LABPAT 11:04
PROVIDERS: ATTEND Orthopaedic Surgery
DX: Z01.818 Encounter for other preprocedural examination (principal); Z01.812 Encounter for preprocedural laboratory examination
CPT/HCPCS: 36415; 80053; 81003; 85027; 85610; 85730; 86850; 86900; 86901; 87070

== ENCOUNTER 2019-11-09 13:11 | Day surgery (SDC) | payer MEDICARE ==
[2019-11-06 09:18] VITALS: BMI 24.7
[~2019-11-09 13:11] MED LIST: ACETAMINOPHEN TAB 500 MG TAB PO ONE; DEXAMETHASONE SOD PHOSPHATE 10 MG/ML 1 ML VIAL IV ONE; GABAPENTIN 300 MG CAP PO ONE; HYDROcodone/APAP 5-325MG 1 EACH TAB PO PRN; HYDROmorphone 0.5 MG/0.5 ML SYRINGE IVP PRN; LIDOCAINE 1% (10MG/ML) FOR IV START INTRADERMA PRN; MAGNESIUM HYDROXIDE 2,400 MG/10 ML CUP PO PRN; MELOXICAM 7.5 MG TAB PO ONE; NALOXONE 0.4 MG/ML 1 ML VIAL IV PRN; ONDANSETRON 4 MG/2 ML VIAL IVP ONE; ONDANSETRON 4 MG/2 ML VIAL IVP PRN; ROPIVACAINE 246.25 MG, EPINEPHrine 0.5 MG, KETOROLAC 30 MG, cloNIDine HCL/PF 80 MCG, WA... MISCELLANE ONE; TRANEXAMIC ACID 1,000 MG in SODIUM CHLORIDE 0.9% 100 ML IVPB ONE
[2019-11-09] MEDS ORDERED: ACETAMINOPHEN TAB 500 MG TAB ONE (13:30)
[2019-11-09] MEDS ORDERED: ONDANSETRON 4 MG/2 ML VIAL ONE (13:30)
[2019-11-09 13:57] LABS: Glucose,Whole Blood 93 mg/dL (75-99)
[2019-11-09] MEDS: LACTATED RINGERS 1,000 ML IV SCH ×2 (14:21→20:50)
[2019-11-09] MEDS ORDERED: HEPARIN SODIUM,PORCINE 10,000 UNIT/ML 1 ML VIAL ONE (14:24)
[2019-11-09] MEDS ORDERED: HYDROmorphone (PF) 1 MG/ML ONE (14:24)
[2019-11-09] MEDS ORDERED: ROCURONIUM BROMIDE 10 MG/ML 5 ML VIAL IV ONE (14:24)
[2019-11-09] MEDS ORDERED: MIDAZOLAM 2 MG/2 ML VIAL ONE (14:24)
[2019-11-09] MEDS ORDERED: GLYCOPYRROLATE 0.2 MG/ML 2 ML VIAL ONE (14:24)
[2019-11-09] MEDS ORDERED: fentaNYL (PF) 50 MCG/ML 2 ML AMP ONE (14:24)
[2019-11-09] MEDS ORDERED: hydrALAZINE HCL 20 MG/ML 1 ML VIAL ONE (14:24)
[2019-11-09] MEDS ORDERED: SUCCINYLCHOLINE CHLORIDE 100 MG/5 ML SYR IV ONE (14:24)
[2019-11-09] MEDS ORDERED: SODIUM CHLORIDE 0.9% 100 ML BAG ONE (14:24)
[2019-11-09] MEDS ORDERED: LIDOCAINE 1% INJ 10MG/ML (20 ML MDV) ONE (14:24)
[2019-11-09] MEDS ORDERED: TRANEXAMIC ACID 1,000 MG/10 ML VIAL ONE (14:24)
[2019-11-09] MEDS ORDERED: SODIUM CHLORIDE 0.9% IRRIG 1,000 ML BTL IRRIGATION ONE (14:24)
[2019-11-09] MEDS ORDERED: PROPOFOL 10 MG/ML 20 ML VIAL IV ONE (14:24)
[2019-11-09] MEDS ORDERED: NEOSTIGMINE 1 MG/ML 10 ML VIAL ONE (14:24)
[2019-11-09] MEDS ORDERED: ceFAZolin 1,000 MG in SODIUM CHLORIDE 0.9% 1,000 ML IRRIGATION ONE (14:57)
[2019-11-09] MEDS ORDERED: LACTATED RINGERS 1,000 ML IV ONE (15:54)
--- NOTE | 2019-11-09 16:06 | P.OP ---
Date of Procedure: 11/09/19 Preoperative Diagnosis: Severe osteoarthritis right hip status post intramedullary nailing of the right hip Postoperative Diagnosis: Severe osteoarthritis of right hip status post intramedullary nailing right hip Procedure(s) Performed: 1. Removal of hardware right hip 2. Right total hip arthroplasty Implants: Ferrari and nephew Readapt femoral standard offset size 15, 190 mm length, revision femoral component Ferrari [employer] Nephew R3, 3 hole acetabular shell, 48 mm Ferrari [employer] Nephew reflection 6.5 mm cancellus screw, 20 mm 2 Ferrari [employer] Nephew R3, XLPE 20 acetabular liner Ferrari [employer] Nephew Oxinium femoral head 32 m, +0 All components were press-fit. The articulation is Oxinium on polyethylene. Anesthesia: spinal Surgeon: Sigifredo Griffin Weight Calculator #1: Kajal Martinez Estimated Blood Loss (ml): 250 (65 mL returned with Cell Saver) Pathology: other (Femoral head) Condition: stable Disposition: PACU Indications for Procedure: After failure of conservative treatment we discussed the surgical and nonsurgical treatment options at length. Patient wishes to proceed with removal of hardware and a total hip arthroplasty. Complications specific to this procedure were discussed at length, including but not limited to infection, leg length discrepancy, dislocation, and nerve injury. Covid-19 was also discussed at length with the patient, and they are aware of the current policies and procedures. The patient was given the option of delaying surgery, but they elect to proceed knowing these risks. Patient is aware of all these complications and informed consent was obtained Operative Findings: The operative findings are consistent with severe osteoarthritis the right hip status post intramedullary rodding of the right hip Description of Procedure: Patient was seen and evaluated in the preoperative area, consent was reviewed, and the surgical site was marked with a skin marker. Patient was then brought to the operating room and given prophylactic antibiotics intravenously. 1 g of Tranexamic acid was also given. A spinal anesthetic was administered by the anesthesia department. The patient was then placed on the operative table and placed in the lateral decubitus position with the bony prominences well-padded. The hip area was then prepped and draped in usual sterile fashion. A universal timeout was then performed, which confirmed the patient's name, surgical site, ALLERGIES, and procedure being performed. Next the incision site was located in the lateral aspect of the hip, centered at the tip of the greater trochanter.. The skin and subcutaneous tissues were sharply incised. Incision was carefully dissected down to the fascia. This fascia was then incised in line with the incision. Next, a Charnley retractor was then placed in the abductors were identified. The anterior one third of the abductors was released off the trochanter and one large sleeve. The anterior hip capsule was then exposed. The capsule was then opened. The proximal femur was then visualized. The hip was then gently dislocated. Next the hardware was then removed using the appropriate screwdrivers. The femoral neck was then osteotomized appropriate level above the lesser trochanter. On gross visual inspection, the femoral head had complete loss of articular cartilage and multiple periarticular osteophytes. Attention was then turned to the acetabulum. The acetabulum was exposed and any remaining labrum was excised. Sequential reaming of the acetabulum was performed to a bed of bleeding cancellus bone. When the appropriate size was reached, a trial was then placed. The trial was then removed. Then the final implant was impacted at 20 of anteversion and 40 of abduction, and fully seated in the acetabulum. 2 screws were then placed in the acetabulum. Next, the liner was then impacted, with a 20 elevated liner located in the anterior superior quadrant. Component locking was confirmed. Attention was then directed to the femur. The proximal was reexposed. Retractors were then placed. A box osteotome was used to lateralize the proximal femur. A ironer hand was then used to locate the femoral canal. Sequential reaming was then performed with appropriate size which afforded excellent fixation in the proximal femur. A trial was then placed with appropriate head and neck, and the hip was gently reduced. The leg lengths were checked and found to be equal. Hip was then taken through full range of motion, was stable throughout. Next, the hip was gently dislocated, and the trials were removed. Final implants were then impacted and the hip was again reduced. The leg lengths were again examined and found to be equal. The hip was also taken through range of motion, and found to be stable. The hip was then copiously irrigated with antibiotic solution with pulsatile lavage. The hip was then irrigated with Irrisept solution. The soft tissues were then injected with a ropivacaine solution, which consisted of 246.25 mg of ropivacaine, 0.5 mg of epinephrine, 30 mg of Toradol, 80 g of clonidine, and 48.45 mL of sterile water, for a total of 100 mL of fluid injected.. A second dose of 1 g of Tranexamic acid was given. The abductors were then repaired with #5 Ethibond suture with drill holes to the bone. The fascia was closed with #2 strata fix suture. The subcutaneous tissue was closed with 3-0 Vicryl. The subcuticular tissue was closed with 3-0 strata fix suture. The skin was then closed with Dermabond glue and a sterile silver dressing. The patient was then transferred to the recovery room in stable condition The Asst.ARELIS Xiong was required due to the complexity of surgery, and the need for skilled surgical first assistant for positioning, draping, exposure, retraction, and closure of the wound.and closure of the wound.
[2019-11-09 16:35] LABS: Glucose,Whole Blood 173 mg/dL (75-99)
[2019-11-09] MEDS: HYDROmorphone 0.5 MG/0.5 ML SYRINGE IVP PRN ×3 (16:47→18:37)
--- NOTE | 2019-11-09 16:58 | XR ---
EXAMINATION TYPE: XR Hip Limited RT DATE OF EXAM: 11/09/2019 COMPARISON: 06/24/2016 HISTORY: Hip surgery TECHNIQUE: Single view FINDINGS: There is right hip prosthesis that appears in anatomic position. IMPRESSION: No complicating process seen.
[2019-11-09] MEDS: SODIUM CHLORIDE 0.9% 1,000 ML IV SCH (18:15)
[2019-11-09] MEDS: CLINDAMYCIN 900 MG in DEXTROSE 5% IN WATER 50 ML IVPB SCH ×2 (19:16)
[2019-11-09] MEDS: ASPIRIN 325 MG TAB PO SCH (20:45)
[2019-11-09] MEDS: INSULIN ASPART (NovoLOG) 100 UNIT/ML VIAL SQ SCH ×2 (20:45→20:47)
[2019-11-09] MEDS ORDERED: SENNOSIDES-DOCUSATE SODIUM 1 EACH TAB PO SCH (21:00)
[2019-11-09 21:04] LABS: Glucose,Whole Blood 170 mg/dL (75-99)
--- NOTE | 2019-11-09 21:56 | P.CONS ---
History of Present Illness - Reason for Consult Consult date: 11/09/19 Medical management Requesting physician: Sigifredo Griffin - Chief Complaint Right hip pain - History of Present Illness Consultation: This is a pleasant 74-year-old patient who follows with Dr. Stanford. Patient's had previous IM nailing of the right hip. Patient underwent removal of the hardware and total hip arthroplasty. Postprocedure some pain is present. Chronic stable medical conditions includes diabetes, hypertension, hyperlipidemia. No chest pain or shortness but no nausea or vomiting. Laying in bed. A bit tired. Review of systems: GEN.: None EYES: None HEENT: None NECK: None RESPIRATORY: None CARDIOVASCULAR: None GASTROINTESTINAL: None GENITOURINARY: None MUSCULOSKELETAL: Joint pains LYMPHATICS: None HEMATOLOGICAL: None PSYCHIATRY: None NEUROLOGICAL: None Past medical history to include: Diabetes, hypertension, hyperlipidemia, osteoarthritis Social history: Lives with a roommate Nataliia, does not smoke, alcohol occasionally. Physical examination: VITAL SIGNS: 96.8, 77, 16, 141/6-3, 100% on 2 L GENERAL: BMI 22.9, laying in bed, comfortable. EYES: Pupils equal. Conjunctiva normal. HEENT: External appearance of nose and ears normal, oral cavity grossly normal. NECK: JVD not raised; masses not palpable. HEART: First and second heart sounds are normal; no edema. LUNGS: Respiratory rate normal; clear to auscultation. ABDOMEN: Soft, nontender, liver spleen not palpable, no masses palpable. PSYCH: Alert and oriented x3; mood and affect normal. MUSCULAR skeletal: Evidence of waist in the hands, dressing over the right hip NEUROLOGICAL: Cranial nerves grossly intact; no facial asymmetry, power and sensation grossly intact. LYMPHATICS: No lymph nodes palpable in the axilla and neck INVESTIGATIONS, reviewed in the clinical context: Accu-Cheks 93, 173, 170 Labs from November 01: White count 10.1 hemoglobin 11.2 potassium 4.2 creatinine 0.7 to Assessment: -Revision right total hip arthroplasty -Diabetes mellitus type 2 on oral hypoglycemic -Essential hypertension -Hyperlipidemia -Primary osteoarthritis Plan: Home medications resumed. Accu-Cheks will be followed. Patient on aspirin for DVT prophylaxis by Dr. Griffin. IV fluids. Care was discussed with the patient. Question also. Thank you Dr. Griffin Past Medical History Past Medical History: Diabetes Mellitus, Hyperlipidemia, Hypertension, Osteoarthritis (OA) Additional Past Medical History / Comment(s): Type 2 diabetes oral meds only History of Any Multi-Drug Resistant Organisms: None Reported Past Surgical History: Joint Replacement, Tonsillectomy Additional Past Surgical History / Comment(s): Left total hip replacement Past Anesthesia/Blood Transfusion Reactions: No Reported Reaction Past Psychological History: No Psychological Hx Reported Smoking Status: Never smoker Past Alcohol Use History: Occasional Past Drug Use History: None Reported - Past Family History Sister(s) Family Medical History: Cancer Mother Family Medical History: CVA/TIA, Deep Vein Thrombosis (DVT) Medications and Allergies Home Medications Medication Instructions Recorded Confirmed Type Atorvastatin Calcium [Lipitor] 40 mg PO DAILY 06/25/16 11/09/19 History lisinopriL [Zestril] 20 mg PO DAILY 06/25/16 11/09/19 History metFORMIN HCL [Glucophage] 500 mg PO BID 11/06/19 11/09/19 History Allergies Allergy/AdvReac Type Severity Reaction Status Date / Time Penicillins Allergy Rash/Hives Verified 11/09/19 13:53 Physical Exam Vitals: Vital Signs Temp Pulse Pulse Resp BP BP Pulse Ox 11/09/19 18:30 80 16 121/64 100 11/09/19 18:00 74 16 117/58 100 11/09/19 17:30 69 16 154/58 100 11/09/19 17:15 66 16 142/65 100 11/09/19 17:03 71 16 141/63 100 11/09/19 16:48 71 16 163/98 100 11/09/19 16:33 66 16 147/66 100 11/09/19 16:18 96.8 F L 77 16 151/69 99 11/09/19 14:06 212/81 11/09/19 13:51 96.8 F L 79 16 233/98 99 Intake and Output 11/09/19 11/09/19 11/09/19 06:59 14:59 22:59 Intake Total 1001 400 Output Total 250 Balance 1001 150 Intake: IV 1001 400 Output: Estimated Blood Loss 250 Other: Weight 58.6 kg 58.6 kg Results Labs: Abnormal Lab Results - Last 24 Hours (Table) 11/09/19 11/09/19 Range/Units 16:33 20:39 POC Glucose (mg/dL) 173 H 170 H (75-99) mg/dL
[2019-11-10] MEDS: CLINDAMYCIN 900 MG in DEXTROSE 5% IN WATER 50 ML IVPB SCH ×2 (01:46)
[2019-11-10] MEDS: SODIUM CHLORIDE 0.9% 1,000 ML IV SCH (01:47)
[2019-11-10 06:56] LABS: Glucose,Whole Blood 107 mg/dL (75-99)
[2019-11-10] MEDS: HYDROmorphone 0.5 MG/0.5 ML SYRINGE IVP PRN ×2 (07:48→13:30)
[2019-11-10 07:50] LABS: Basophils % (A) 0 %; Eosinophils % (A) 0 %; HCT 28.3 % (34.0-46.0); Lymphocytes # (A) 1.2 k/uL (1.0-4.8); Lymphocytes % (A) 8 %; MCH 29.3 pg (25.0-35.0); MCHC 31.9 g/dL (31.0-37.0); MCV 91.8 fL (80.0-100.0); Mean Platelet Volume 7.5; Monocytes # (A) 0.6 k/uL (0-1.0); Monocytes % (A) 5 %; Neutrophils # (A) 11.8 k/uL (1.3-7.7); Neutrophils % (A) 86 %; Platelet Count 288 k/uL (150-450); RBC 3.08 m/uL (3.80-5.40); RDW 13.5 % (11.5-15.5); WBC 13.8 k/uL (3.8-10.6)
[2019-11-10 08:04] VITALS: RESP 16
[2019-11-10] MEDS: ASPIRIN 325 MG TAB PO SCH (08:28)
[2019-11-10] MEDS ORDERED: metFORMIN 500 MG TAB PO SCH (09:00)
[2019-11-10] MEDS ORDERED: ATORVASTATIN 40 MG TAB PO SCH (09:00)
[2019-11-10] MEDS ORDERED: lisinopriL 20 MG TAB PO SCH (09:00)
[2019-11-10] MEDS ORDERED: HYDROcodone/APAP 7.5-325MG 1 EACH TAB PO PRN ×2 (09:26)
--- NOTE | 2019-11-10 09:29 | P.DS ---
Providers Expected date of discharge: 11/10/19 Attending physician: Sigifredo Griffin Consults: 11/09/19 12:21 Consult Physician Routine Consulting Provider: Darryl Howard Consult Reason/Comments: medical management Do you want consulting provider notified?: Yes Primary care physician: Faisal Stanford - Discharge Diagnosis(es) (1) Osteoarthritis of right hip Current Visit: Yes Status: Acute (2) Status post total hip replacement, right Current Visit: Yes Status: Acute Hospital Course: This is a 74-year-old female with known history of degenerative arthritis of the right hip along with intramedullary nailing of the right hip. The patient pr esents for evaluation. After discussion and consideration patient elects to proceed with removal of hardware and right total hip arthroplasty. The patient is seen preoperatively by Dr. Griffin and medically cleared for surgery by their primary care physician. Patient is admitted to [facility] on 11/09/2019 for removal of hardware and right total hip arthroplasty. The procedures performed without complication or sequelae. The patient is doing well postoperatively. Labs and vital signs are stable on day of discharge. On day of discharge patient's hip incision is healing well. There is minimal erythema. There is no drainage noted at this time. There is minimal soft tissue swelling to the hip and thigh. Patient has full foot and ankle motion without difficulty or pain. Calf is soft and nontender to palpation. Neurovascular status to the right lower extremity is intact. Patient is discharged home in good condition. Opioid start talking form is reviewed and signed at patient bedside. Please see med rec for accurate list of home medications. Plan - Discharge Summary Discharge Rx Participant: No New Discharge Prescriptions: New Aspirin 325 mg PO BID #60 tab HYDROcodone/APAP 7.5-325MG [[place] 7.5-325] 1 - 2 tab PO Q6H PRN #32 tab PRN Reason: Pain Sennosides [Senokot] 2 tab PO DAILY PRN #60 tablet PRN Reason: Constipation No Action lisinopriL [Zestril] 20 mg PO DAILY Atorvastatin Calcium [Lipitor] 40 mg PO DAILY metFORMIN HCL [Glucophage] 500 mg PO BID Discharge Medication List Atorvastatin Calcium [Lipitor] 40 mg PO DAILY 06/25/16 [History] lisinopriL [Zestril] 20 mg PO DAILY 06/25/16 [History] metFORMIN HCL [Glucophage] 500 mg PO BID 11/06/19 [History] Aspirin 325 mg PO BID #60 tab 11/10/19 [Rx] HYDROcodone/APAP 7.5-325MG [[place] 7.5-325] 1 - 2 tab PO Q6H PRN #32 tab 11/10/19 [Rx] Sennosides [Senokot] 2 tab PO DAILY PRN #60 tablet 11/10/19 [Rx] Follow up Appointment(s)/Referral(s): Sigifredo Griffin DO [Doctor of Osteopathic Medicine] - 2 Weeks Activity/Diet/Wound Care/Special Instructions: Weightbearing as tolerated with walker. Leave dressing intact. Dressing may be removed by home care nurse or by patient in 10 days. May shower with dressing on. Continue hip dislocation precautions. Continue use of abductor pillow for 6 weeks while sleeping. Recommend use of compression stockings daily until follow up to help prevent swelling and blood clots. May remove at night before sleeping. Please follow-up with [facility] in 2 weeks and call with any questions or concerns, . Discharge Disposition: HOME WITH HOME HEALTH SERVICES
[2019-11-10 11:34] LABS: Glucose,Whole Blood 143 mg/dL (75-99)
[2019-11-10] MEDS: INSULIN ASPART (NovoLOG) 100 UNIT/ML VIAL SQ SCH (12:02)
[2019-11-10 15:07] VITALS: BP 130/71; PULSE 79; TEMP 97.9
--- NOTE | 2019-11-10 23:22 | P.PN ---
Progress Note - Text Progress Note Date: 11/10/19 - Chief Complaint Right hip pain Consultation: This is a pleasant 74-year-old patient who follows with Dr. Stanford. Patient's had previous IM nailing of the right hip. Patient underwent removal of the hardware and total hip arthroplasty. Chronic stable medical conditions includes diabetes, hypertension, hyperlipidemia. Today-feeling better. Has been out of bed. Pain control. No nausea vomiting. Did tolerate her diet. Review of systems: Was done for constitutional, cardiovascular, GI, pulmonary. relevant finding as above Current medications reviewed in today's electronic records Physical examination: VITAL SIGNS: 98.9, 72, 16, 148/67, 96% room air GENERAL: Sitting up, comfortable EYES: Pupils equal. Conjunctiva normal. HEENT: External appearance of nose and ears normal, oral cavity grossly normal. NECK: JVD not raised; masses not palpable. HEART: First and second heart sounds are normal; no edema. LUNGS: Respiratory rate normal; clear to auscultation. ABDOMEN: Soft, nontender, liver spleen not palpable, no masses palpable. PSYCH: Alert and oriented x3; mood and affect normal. MUSCULAR skeletal: Evidence of waist in the hands, dressing over the right hip INVESTIGATIONS, reviewed in the clinical context: White count 13.8 hemoglobin 9 platelets 28 Accu-Cheks 143 Previous testing Accu-Cheks 93, 173, 170 Labs from November 01: White count 10.1 hemoglobin 11.2 potassium 4.2 creatinine 0.7 to Assessment: -Revision right total hip arthroplasty -Diabetes mellitus type 2 on oral hypoglycemic -Essential hypertension -Hyperlipidemia -Primary osteoarthritis -Acute postprocedure blood loss anemia, as expected from surgery -Leukocytosis reactive from surgery. No clinical evidence of infection Plan: -Doing well. Continue current medication and treatment plan. Discussed with the patient. Thank you Dr. Griffin
== END 2019-11-10 16:58 | disposition home health service (06) ==
LOC: OR 13:11 → 4SSUR 17:54 → OR 11-10 16:58
PROVIDERS: ATTEND Orthopaedic Surgery
DX: M16.11 Unilateral primary osteoarthritis, right hip (principal); D62 Acute posthemorrhagic anemia; D72.829 Elevated white blood cell count, unspecified; I10 Essential (primary) hypertension; E78.2 Mixed hyperlipidemia; E11.9 Type 2 diabetes mellitus without complications; Z96.642 Presence of left artificial hip joint; Z88.0 Allergy status to penicillin; Z79.84 Long term (current) use of oral hypoglycemic drugs; Z79.899 Other long term (current) drug therapy; Z98.890 Other specified postprocedural states; Z90.89 Acquired absence of other organs; Z83.3 Family history of diabetes mellitus; Z82.49 Family history of ischemic heart disease and other diseases of the circulatory system; Z80.9 Family history of malignant neoplasm, unspecified
CPT/HCPCS: 97110; 97161; 97535; 97165; 86891; 85025; 88300; 73501; 27130; P9022; C1776; J2250; J0171; J0360; J1644; J1100; J2710; J2405; J0690; J2001; J3010; J1885; J1170 ×3; J2795; J0330; J2704; J0735; 86850; 86900; 86901

== ENCOUNTER → 2019-11-24 | Outpatient (CLI) | payer MEDICARE ==
--- NOTE | 2019-11-24 11:24 | US ---
EXAMINATION TYPE: US venous doppler duplex LE RT DATE OF EXAM: 11/24/2019 11:06 AM COMPARISON: NONE CLINICAL HISTORY: I80.9 Phlebitis and thrombophlebitis of unspecified. Pain and swelling. Recent righ t hip surgery. SIDE PERFORMED: Right TECHNIQUE: The lower extremity deep venous system is examined utilizing real time linear array sonog jose with graded compression, doppler sonography and color-flow sonography. VESSELS IMAGED: External Iliac Vein (EIV) Common Femoral Vein Deep Femoral Vein Greater Saphenous Vein * Femoral Vein Popliteal Vein Small Saphenous Vein * Proximal Calf Veins (* superficial vessels) Right Leg: Negative for DVT Grayscale, color doppler, spectral doppler imaging performed of the deep veins of the right lower ext remity. There is normal flow, compressibility, vascular waveforms. IMPRESSION: No ultrasound evidence for acute DVT in the right lower extremity.
== END | disposition home or self-care (01) ==
LOC: RADUSWWP 10:45
PROVIDERS: ATTEND Orthopaedic Surgery
DX: M25.551 Pain in right hip (principal); M16.11 Unilateral primary osteoarthritis, right hip; I10 Essential (primary) hypertension; E78.5 Hyperlipidemia, unspecified; E13.9 Other specified diabetes mellitus without complications; I80.9 Phlebitis and thrombophlebitis of unspecified site